=== PATIENT | female | born 1990 | race Caucasian/White ===

== ENCOUNTER 2017-12-17 12:40 | Emergency (ER) | payer SELFPAY ==
[2017-12-17 13:52] VITALS: BP 126/77
--- NOTE | 2017-12-17 14:42 | UC ---
UC General HPI - HPI Summary HPI Summary: Patient states that this is day 4 with nausea vomiting and diarrhea. She states that she vomits about twice daily and has had multiple bouts of watery diarrhea. She is familiar with C. difficile colitis and states that it does not smell like C. difficile. She denies any recent antibiotic use, travel history,ill contacts or consumption of raw seafood. She does admit to having some well water. She did take Pepto-Bismol this morning which gave her some relief. She denies any history of inflammatory bowel disease as well as abdominal pain. She is able to keep fluids down. - History of Current Complaint Chief Complaint: UCGI Stated Complaint: VOMITING DIARRHEA CHILLS/SWEATS Time Seen by Provider: 12/17/17 14:33 Hx Obtained From: Patient Hx Last Menstrual Period: 11/25/17 Timing: Constant Pain Intensity: 3 Associated Signs & Symptoms: Positive: Diarrhea, Nausea, Vomiting. Negative: Fever - Allergy/Home Medications Allergies/Adverse Reactions: Allergies Allergy/AdvReac Type Severity Reaction Status Date / Time No Known Allergies Allergy Verified 12/17/17 13:46 Home Medications: Home Medications Bismuth Subsalicylate [Pepto Bismol] 2 tab PO ONCE PRN 12/17/17 [History Confirmed 12/17/17] PMH/Surg Hx/FS Hx/Imm Hx Previously Healthy: Yes - Surgical History Surgical History: Yes Surgery Procedure, Year, and Place: tubes in ears - Family History Known Family History: Positive: None - Social History Lives: With Family Alcohol Use: Occasionally Substance Use Type: None Smoking Status (MU): Heavy Every Day Tobacco Smoker Type: Cigarettes Amount Used/How Often: 1/2 PPD - Immunization History Vaccination Up to Date: Yes Review of Systems Constitutional: Negative Skin: Negative Eyes: Negative ENT: Negative Respiratory: Negative Cardiovascular: Negative Gastrointestinal: Vomiting, Diarrhea, Nausea Genitourinary: Negative Motor: Negative Neurovascular: Negative Musculoskeletal: Negative Neurological: Negative Psychological: Negative Is Patient Immunocompromised?: No All Other Systems Reviewed And Are Negative: Yes Physical Exam Triage Information Reviewed: Yes Appearance: Well-Appearing Vital Signs: Initial Vital Signs Temp 97.4 F 12/17/17 13:47 Pulse 98 12/17/17 13:47 Resp 16 12/17/17 13:47 BP 126/77 12/17/17 13:47 Pulse Ox 98 12/17/17 13:47 Vital Signs Reviewed: Yes Eyes: Positive: Conjunctiva Clear ENT: Positive: Pharynx normal, TMs normal. Negative: Nasal congestion, Nasal drainage Neck: Positive: Supple, Nontender, No Lymphadenopathy Respiratory: Positive: Lungs clear, Normal breath sounds Cardiovascular: Positive: RRR, No Murmur Abdomen Description: Positive: Nontender, No Organomegaly, Soft. Negative: CVA Tenderness (R), CVA Tenderness (L), Distended, Guarding Bowel Sounds: Positive: Hyperactive Musculoskeletal: Positive: ROM Intact Neurological: Positive: Alert Psychological: Positive: Age Appropriate Behavior Skin Exam: Normal Course/Dx - Course Course Of Treatment: Patient is nontoxic and has no acute abdomen. She has no travel history where she may have come in contact with contaminated water or food. She denies having any sick contacts. She denies any recent antibiotic use which would put her at risk for C. difficile colitis. She does admit to having some well water but none on the other family members are ill. This is only day for but given the well water I did offer to test her stool for ova and parasites as well as sent a culture. At this point, patient is declining and treatment will remain symptomatic. Need for close up with her primary care was stressed and she does have a primary care in [place] plus she's been advised to go to the ER for change or worsening. Patient is comfortable with this plan. - Differential Dx - Multi-Symptom Provider Diagnoses: Vomiting and diarrhea Discharge - Sign-Out/Discharge Documenting (check all that apply): Patient Departure All imaging exams completed and their final reports reviewed: No Studies - Discharge Plan Condition: Stable Disposition: HOME Patient Education Materials: Acute Nausea and Vomiting (ED), Acute Diarrhea (ED ) Referrals: No Primary Care Phys,NOPCP [Primary Care Provider] - Additional Instructions: FOLLOW UP WITH YOUR PRIMARY CARE DOCTOR IN [place] ON WEDNESDAY. GO TO ER FOR ANY WORSENING. - Billing Disposition and Condition Condition: STABLE Disposition: Home
== END 2017-12-17 14:56 | disposition home or self-care (01) ==
LOC: UCCORT 12:40
DX: R11.10 Vomiting, unspecified (principal); R19.7 Diarrhea, unspecified; F17.210 Nicotine dependence, cigarettes, uncomplicated
CPT/HCPCS: 99201; G0463

== ENCOUNTER 2019-06-06 11:10 | Emergency (ER) | payer OTHER ==
[2019-06-06 11:25] VITALS: BP 120/68
--- NOTE | 2019-06-06 11:42 | UC ---
Throat Pain/Nasal Zachary HPI - HPI Summary HPI Summary: sore throat x 1 day pain is 7 out 10 , worse with swallowing , better with Tylenol denies any cough , no runny nose, no fever, no chills , no body aches - History of Current Complaint Chief Complaint: UCGeneralIllness Stated Complaint: SORE THROAT Time Seen by Provider: 06/06/19 11:23 Hx Obtained From: Patient Hx Last Menstrual Period: 11/25/17 ?: No Onset/Duration: Gradual Onset, Lasting Days - 1, Still Present Severity: Moderate Pain Intensity: 5 Cough: None Associated Signs & Symptoms: Negative: Drooling, Wheezing, Hoarseness, Sinus Discomfort, Nasal Discharge, Fever, Vomiting, Rash - Allergies/Home Medications Allergies/Adverse Reactions: Allergies Allergy/AdvReac Type Severity Reaction Status Date / Time No Known Allergies Allergy Verified 06/06/19 11:25 Home Medications: Home Medications NK [No Home Medications Reported] 06/06/19 [History Confirmed 06/06/19] PMH/Surg Hx/FS Hx/Imm Hx Previously Healthy: Yes - Surgical History Surgical History: Yes Surgery Procedure, Year, and Place: tubes in ears - Family History Known Family History: Positive: None Negative: Diabetes - Social History Alcohol Use: Rare Substance Use Type: None Smoking Status (MU): Heavy Every Day Tobacco Smoker Type: Cigarettes Amount Used/How Often: 1/2 PPD Have You Smoked in the Last Year: No When Did the Patient Quit Smoking/Using Tobacco: Apr 2018 - Immunization History Vaccination Up to Date: Yes Review of Systems All Other Systems Reviewed And Are Negative: Yes Constitutional: Positive: Negative. Negative: Fever, Chills, Fatigue Skin: Positive: Negative Eyes: Positive: Negative ENT: Positive: Sore Throat. Negative: Ear Ache, Nasal Discharge Respiratory: Negative: Cough Musculoskeletal: Negative: Arthralgia, Myalgia Is Patient Immunocompromised?: No Physical Exam Triage Information Reviewed: Yes Appearance: Well-Appearing, No Pain Distress, Well-Nourished Vital Signs: Initial Vital Signs Temp 97.9 F 06/06/19 11:20 Pulse 63 06/06/19 11:20 Resp 18 06/06/19 11:20 BP 120/68 06/06/19 11:20 Pulse Ox 100 06/06/19 11:20 Vital Signs Reviewed: Yes Eye Exam: Normal Eyes: Positive: Conjunctiva Clear ENT: Positive: Normal ENT inspection, Hearing grossly normal, Pharynx normal, TMs normal. Negative: Pharyngeal erythema, Tonsillar swelling, Tonsillar exudate Neck: Positive: Supple, Nontender, No Lymphadenopathy Respiratory: Positive: Chest non-tender, Lungs clear, Normal breath sounds Cardiovascular: Positive: RRR, No Murmur, Pulses Normal Skin Exam: Normal Throat Pain/Nasal Course/Dx - Differential Dx/Diagnosis Provider Diagnosis: Viral pharyngitis Discharge ED - Sign-Out/Discharge Documenting (check all that apply): Patient Departure All imaging exams completed and their final reports reviewed: No Studies - Discharge Plan Condition: Stable Disposition: HOME Patient Education Materials: Pharyngitis (ED) Forms: *Work Release Referrals: Lianet Barrientos DO [Primary Care Provider] - If Needed - Billing Disposition and Condition Condition: STABLE Disposition: Home
== END 2019-06-06 11:45 | disposition home or self-care (01) ==
LOC: UCCORT 11:10
DX: J02.9 Acute pharyngitis, unspecified (principal); F17.210 Nicotine dependence, cigarettes, uncomplicated
CPT/HCPCS: 87651; 99211; G0463